=== PATIENT | male | born 1975 | race Two or more races ===

== ENCOUNTER 2019-01-19 09:59 | Day surgery (SDC) | payer OTHER ==
[2019-01-19] VITALS (10 sets, daily range): BP systolic 120–130; BP diastolic 75–95
[~2019-01-19] VITALS: Ht 172.7 cm; Wt 79.4 kg
[~2019-01-19 09:59] MED LIST: ceFAZolin 1gm IVPB IVPB ONE; celeBREX 200mg Cap **SURGERY PATIENTS ONLY ORAL ONE; oxyCONTIN 20mg tab ORAL ONE
[2019-01-19] MEDS ORDERED: IBUPROFEN600 MG ORAL (10:34)
[2019-01-19] MEDS ORDERED: NAPROXEN SODIU500 MG PO (10:34)
[2019-01-19] MEDS ORDERED: oxyCONTIN 20mg tab ORAL ONE (10:42)
[2019-01-19] MEDS ORDERED: celeBREX 200mg Cap **SURGERY PATIENTS ONLY ORAL ONE (10:42)
--- NOTE | 2019-01-19 11:19 | Pre-Procedure Note/Attestation ---
Pre-Procedure Note/Attestation Complete Prior to Procedure Planned Procedure: left Procedure Narrative: ankle arthroscopy, synovectomy Indications for Procedure Pre-Operative Diagnosis: left ankle internal derangment Attestation I attest that I discussed the nature of the procedure; its benefits; risks and complications; and alternatives (and the risks and benefits of such alternatives ), prior to the procedure, with the patient (or the patient's legal commercial representative). I attest that, if there was a reasonable possibility of needing a blood transfusion, the patient (or the patient's legal commercial representative) was given the [facility] standardized written summary, pursuant to the Arya [place] Blood Safety Act ([place] Health and Safety Code # 1645, as amended). I attest that I re-evaluated the patient just prior to the surgery and that there has been no change in the patient's H&P, except as documented below: Jeevan Curtis MD Jan 19, 2019 11:19
[2019-01-19] MEDS ORDERED: Kenalog-40 1ml Vial ONE (11:20)
[2019-01-19] MEDS ORDERED: Bupivacaine 0.5% Inj 30 ml vial INJ ONE (11:20)
[2019-01-19] MEDS ORDERED: Ketorolac 30mg Inj ONE ×2 (11:20→12:27)
[2019-01-19] MEDS ORDERED: Duramorph PF 5mg/10ml amp ONE (11:20)
--- NOTE | 2019-01-19 11:20 | Operative Note - PDOC ---
Operative Note Operative Note Pre-op Diagnosis: left ankle internal derangment Procedure: see op report Post-op Diagnosis: same as pre-op plus Operative Findings: consistent w/pre-op dx studies Anesthesia: general Specimen: none Complications: none Condition: stable Estimated Blood Loss: none Implant(s) used?: No Jeevan Curtis MD Jan 19, 2019 11:20
[2019-01-19] MEDS ORDERED: Sterile Water Irrig 1000ml IRRIG ONE (11:30)
[2019-01-19] MEDS ORDERED: HYDROcodone/Acetamin 5/325 tab ORAL PRN (11:30)
[2019-01-19] MEDS ORDERED: Tylenol #3 tab (300mg/30mg) ORAL PRN (11:30)
[2019-01-19] MEDS ORDERED: D5 1/2NS 1,000 ML IV SCH (11:30)
[2019-01-19] MEDS ORDERED: HYDROmorphone 1mg/ml Carpuject SUBQ PRN (11:30)
[2019-01-19] MEDS ORDERED: LR 1000ml ONE (11:30)
[2019-01-19] MEDS ORDERED: fentaNYL 100 mcg/2 mL IV ONE (11:37)
[2019-01-19] MEDS ORDERED: NS Irrig 4000ml IRRIG ONE (11:50)
[2019-01-19] MEDS ORDERED: Duramorph PF 5mg/10ml amp IT ONE ×2 (11:50→12:23)
[2019-01-19] MEDS ORDERED: Lidocaine 1% MPF 10mg/ml 5ml ONE (12:27)
[2019-01-19] MEDS ORDERED: Metoclopramide 10mg/2ml Inj ONE (12:27)
[2019-01-19] MEDS ORDERED: Propofol 200mg/20ml IV ONE (12:27)
--- NOTE | 2019-01-19 13:03 | Immediate Post-Op Evaluation ---
Immediate Post-Op Evalulation Immediate Post-Op Evalulation Procedure: left ankle arthroscopy Date of Evaluation: Jan 19, 2019 Time of Evaluation: 13:02 IV Fluids: 600 Blood Pressure Systolic: 130 Blood Pressure Diastolic: 95 Pulse Rate: 66 Respiratory Rate: 14 O2 Sat by Pulse Oximetry: 99 Temperature (Fahrenheit): 97.4 Nausea: No Vomiting: No Complications none Patient Status: awake, reacts, patent Hydration Status: adequate Drug: ancef Given Within 1 Hr of Incision: Yes Time Given: 11:50 Lesly Schilling CRNA Jan 19, 2019 13:03
--- NOTE | 2019-01-19 13:05 | Anethesia Preoperative Eval ---
Anesthesia Pre-op PMH/ROS General Date of Evaluation: Jan 19, 2019 Time of Evaluation: 11:30 Anesthesiologist: benitez ASA Score: ASA 1 Mallampati Score Class I : Soft palate, uvula, fauces, pillars visible Class II: Soft palate, uvula, fauces visible Class III: Soft palate, base of uvula visible Class IV: Only hard plate visible Mallampati Classification: Class II Surgeon: rajinder Diagnosis: ankle pain Surgical Procedure: left ankle arthroscopy Anesthesia History: none Family History: no anesthesia problems Allergies: Coded Allergies: No Known Allergies (Unverified , 01/19/19) Medications: see eMAR Patient NPO?: Yes NPO Date: Jan 19, 2019 NPO Time: 00:01 Past Medical History Cardiovascular: Denies: HTN, CAD, VA, valve dz, arrhythmia, other Pulmonary: Denies: asthma, COPD, CHIQUITA, other Gastrointestinal/Genitourinary: Denies: GERD, CRI, ESRD, other Neurologic/Psychiatric: Denies: dementia, CVA, depression/anxiety, TIA, other Endocrine: Denies: DM, hypothyroidism, steroids, other HEENT: Denies: cataract (L), cataract (R), glaucoma, ELIM IRA (L), ELIM IRA (R), other Hematology/Immune: Denies: anemia, DVT, bleeding disorder, other Musculoskeletal/Integumentary: Denies: OA, RA, DJD, DDD, edema, other PSxH Narrative: appendectomy Anesthesia Pre-op Phys. Exam Physician Exam Last Vital Signs Date Time Temp Pulse Resp B/P (MAP) Pulse Ox O2 Delivery O2 Flow Rate FiO2 01/19/19 10:36 Room Air 01/19/19 10:34 98.0 51 18 121/75 99 Constitutional: NAD Neurologic: CN 2-12 intact Cardiovascular: RRR Respiratory: CTA Gastrointestinal: S/NT/ND Airway Exam Mallampati Classification 2 Mallampati Score: Class II MO: full ROM: full Dentures: no upper, no lower Anesthesia Pre-op A/P Studies Pre-op Studies: EKG - sr Risk Assessment & Plan Assessment: denies cp/sob/changes in health Plan: general Status Change Before Surgery: No Pre-Antibiotics Drug: ancef Given Within 1 Hr of Incision: Yes Time Given: 11:50 Lesly Schilling CRNA Jan 19, 2019 13:05
[2019-01-19] MEDS ORDERED: fentaNYL 100 mcg/2 mL IV PRN (13:15)
--- NOTE | 2019-01-19 15:11 | 48 Hour Post Anesthesia Eval ---
Post Anesthesia Evaluation Procedure: left ankle arthroscopy Date of Evaluation: Jan 19, 2019 Time of Evaluation: 15:11 Blood Pressure Systolic: 126 0: 82 Pulse Rate: 51 Respiratory Rate: 14 O2 Sat by Pulse Oximetry: 98 Airway: patent Nausea: No Vomiting: No Hydration Status: adequate Cardiopulmonary Status: stable Mental Status/LOC: patient returned to baseline Follow-up Care/Observations: na Post-Anesthesia Complications: none Follow-up care needed: N/A Lesly Schilling CRNA Jan 19, 2019 15:11
--- NOTE | 2019-01-19 20:30 | Operative Note - Dictated ---
DATE OF OPERATION: 01/19/2019 PREOPERATIVE DIAGNOSES: 1. Left ankle internal derangement. 2. Left ankle peroneal tendonosis. POSTOPERATIVE DIAGNOSES: 1. Left ankle chondral damage, talar dome. 2. Soft tissue impingement anterolateral gutter, ankle. 3. Peroneal tendon tenosynovitis. PROCEDURES: 1. Left ankle diagnostic arthroscopy, synovectomy, chondroplasty. 2. Open peroneal tendon tenosynovectomy. SURGEON: Jeevan Curtis M.D. ANESTHESIA: General. INDICATION FOR PROCEDURE: The patient is a pleasant gentleman, who has had direct trauma to his left ankle. He had continued pain despite conservative treatment, elected to undergo left ankle diagnostic arthroscopy and open peroneal tendon exploration with possible tenosynovectomy versus repair. Risks, limitations, expectations, complication of the procedure were discussed in detail. All questions addressed. DESCRIPTION OF PROCEDURE: After informed consent was obtained, the patient was brought to the operating room and placed the patient under general anesthesia. Left leg was prepped and draped in a sterile manner. Time-out was performed. Tibialis anterior tendon was identified. Anteromedial skin incision was then marked based on the landmarks. A 20-gauge needle was then placed in the ankle joint. Once it was confirmed, the ankle joint was infused with 0.25% Marcaine plain. Skin was incised. Blunt dissection down to the ankle joint was performed. Camera was then placed into the ankle joint. Once that was done, there was hypertrophic synovial tissue in the anterior and lateral compartment. There was grade 2 chondral damage in the medial talar dome. At this point, anterolateral working portal was established with inside out technique. Care was taken to protect the superficial peroneal nerve. Once this was done, the synovectomy and chondroplasty of the ankle was completed. Once this was done, the diagnostic of the ankle was performed and no further soft tissue impingement was visible. At this point, the skin was closed using nylon sutures. A curvilinear incision along the posterolateral aspect of the ankle was then marked out. Esmarch was used to exsanguinate the extremity. Skin incision was then made. Blunt dissection down to sheath of the peroneal tendon was performed. The peroneal tendon sheath was then incised. At this point, there was some hyperemia along peroneal brevis tendon. A tenosynovectomy was performed. The peroneal tendon was then further visualized to make sure there was no longitudinal tear. Once that was completed, the wound was copiously irrigated. The tendon sheath was loosely approximated with #2 Vicryl suture. Skin was approximated using 2-0 Vicryl suture, 3-0 Monocryl sutures, Monocryl, and Dermabond. Posterior splint was applied. The patient was awoken and taken to recovery room with stable vital signs. ESTIMATED BLOOD LOSS: None. COMPLICATIONS: None. SPECIMENS: None. IMPLANTS: None. Jeevan Curtis M.D. DR: Maisha JOB#: [id number] CC:
== END 2019-01-19 15:30 | disposition home or self-care (01) ==
LOC: SUR 09:59
DX: M25.872 Other specified joint disorders, left ankle and foot (principal); M65.872 Other synovitis and tenosynovitis, left ankle and foot; Z90.89 Acquired absence of other organs
CPT/HCPCS: 27899; 29895; J0690; J1885; J2405; J2704; J2765; J3010; J3301; J3490; 94003; 94150